=== PATIENT | female | born 1990 | race Caucasian/White ===

== ENCOUNTER 2019-12-14 14:51 | Outpatient (CLI) | payer OTHER, MEDICAID, SELFPAY ==
--- NOTE | 2019-12-14 15:00 | US_ITS ---
WS: [id number] EARLY OBSTETRICAL ULTRASOUND (<14 WEEKS). HISTORY: ENCOUNTER FOR SCREENING FOR UNCERTION DATES COMPARISON: None available. Single intrauterine gestational sac is identified. Cardiac activity at 171 BPM. [place]-rump length pardeep sures 2.6 cm which corresponds to a gestation of 9w2d. Normal-appearing yolk sac and amnion demonstra jason. No subchorionic hemorrhage. No free fluid. Normal size ovaries with no mass. US/US OB <= 14 weeks fetus [id number] IMPRESSION: 1. Single intrauterine gestation of 9 weeks 2 days and EDC of 07/16/2020. 2. No complications are apparent.
== END 2019-12-14 14:52 | disposition home or self-care (01) ==
LOC: RAD 15:00
PROVIDERS: Family Provider Family Medicine; PCP Obstetrics & Gynecology; Visit Provider Family Medicine
DX: Z36.87 Encounter for antenatal screening for uncertain dates (principal)
CPT/HCPCS: 76801

== ENCOUNTER 2020-03-01 14:06 | Outpatient (CLI) | payer OTHER, MEDICAID, SELFPAY ==
--- NOTE | 2020-03-01 14:10 | US_ITS ---
WS: [id number] OBSTETRICAL ULTRASOUND COMPLETE HISTORY: SUPERVISION HIGH RISK SECOND TRIMESTER COMPARISON: 12/14/2019 Single intrauterine gestation in Cephalic presentation. Cervix is Closed and normal length. Cervical length is 3.8 cm. Normal amount of amniotic fluid surrounds the fetus. Placenta: Anterior, no previa or abruption Placenta grade 1 Heart: 144 BPM. Four chambers are identified. Anatomy: Intracranial structures and spine are normal. kidneys, stomach and urinary bladd er are unremarkable. Abdominal wall, three-vessel cord and cord insertion site are normal. 4 extremities are present. profile: Unremarkable. Gender: Male. measurements: BPD = 4.6 cm = 20w0d HC = 18.0 cm = 20w3d AC = 15.6 cm = 20w5d FL = 3.2 cm = 20w0d EFW: 350 g., Measurements are internally concordant. Appropriate growth since the first trimester ultrasound. AGA by ultrasound: 20w2d SUE by ultrasound: 07/17/2020 US/US OB >= 14 weeks fetus [id number] IMPRESSION: 1. Single intrauterine gestation of 20w2d with an SUE of 07/17/2020. Appropria te growth since the first trimester ultrasound. 2. Unremarkable screening survey of anatomy.
== END 2020-03-01 14:07 | disposition home or self-care (01) ==
LOC: RAD 14:09
PROVIDERS: PCP Family Medicine; Visit Provider Family Medicine
DX: O09.92 Supervision of high risk pregnancy, unspecified, second trimester (principal); Z3A.20 20 weeks gestation of pregnancy
CPT/HCPCS: 76805

== ENCOUNTER 2020-04-18 08:20 | Outpatient (CLI) | payer MEDICAID, SELFPAY ==
[2020-04-18] VITALS (11 sets, daily range): BP systolic 0–105; BP diastolic 0–68; PULSE 75–93; RESP 16; TEMP 36.7; BMI 24.1
[2020-04-18] MEDS: betamethasone susp 6 mg/mL 5 mL 12 MG IM (10:52)
== END 2020-04-18 11:50 | disposition home or self-care (01) ==
LOC: OPOB 08:26 → OBGYN 11:38
PROVIDERS: PCP Family Medicine; Visit Provider Family Medicine
DX: O26.899 Other specified pregnancy related conditions, unspecified trimester (principal); Z3A.00 Weeks of gestation of pregnancy not specified; Z91.81 History of falling
CPT/HCPCS: 36415; 59025; 85460; 96372; 99211; J0702

== ENCOUNTER 2020-04-18 11:54 | Emergency (ER) | payer MEDICAID, SELFPAY ==
[2020-04-18 12:05] VITALS: BP 120/72; PULSE 81; RESP 17; TEMP 37.2; O2SAT 96; BMI 23.8
--- NOTE | 2020-04-18 12:12 | XR_ITS ---
WS: [id number] Right foot, 3 views, 04/18/2020 Clinical Data: fall, deformity, shield abd Comparison: None. Findings: No fractures or dislocations are seen. No bone destruction or erosion is noted. The joint spaces and soft tissues are normal. XR/XR foot RT min 3V* [id number] Impression: Negative right foot.
--- NOTE | 2020-04-18 12:12 | XR_ITS ---
WS: [id number] Left foot, 3 views, 04/18/2020 Clinical Data: fall, deformity - shield abd Comparison: None. Findings: No fractures or dislocations are seen. No bone destruction or erosion is noted. The joint spaces and soft tissues are normal. XR/XR foot LT min 3V* [id number] Impression: Negative left foot.
--- NOTE | 2020-04-18 12:13 | W.ED.FALL ---
HPI - Fall General: Chief Complaint: Extremity Injury, Lower Stated Complaint: FALL Time Seen by Provider: 04/18/20 12:08 History of Present Illness: HPI Narrative: This patient is a 29-year-old female who presents today after falling off of her porch. She is 27 weeks . Prior to coming to the ED she went to L&D and was monitored for 4 to 5 hours. She had blood work which they told her was normal. She was cleared from an OB perspective and brought to the ER. Her complaint here is ankle pain and foot pain bilaterally. She is not sure how she injured her feet but she noted hearing pops and cracks as she fell. She thinks maybe she twisted them as she fell off the edge of the porch. She is not sure why she fell. She said she was just standing on the porch and must have misjudged where the edge was. She landed on her abdomen. The incident occurred about 630 this morning. MD complaint: fall Onset (ago): hour(s) (6) Fall witnessed: no Place fall occurred: home Loss of consciousness: None Associated symptoms-after fall: Denies abdominal pain, chest pain, headache(s) or neck pain Review of Systems General: Reports: 10 or more systems reviewed and unremarkable except in HPI and below Const: Denies: fever(s), chills, fatigue or malaise Eyes: Denies: change in vision ENMT: Denies: odynophagia Card: Denies: chest pain or swelling of feet/ankles Resp: Denies: dyspnea, productive cough or non-productive cough GI: Denies: abdominal pain, nausea or vomiting : Denies: flank pain or difficulty voiding Musc: Reports: joint pain and joint swelling; Denies: neck pain or back pain Skin/Breast: Denies: rash Neuro: Denies: headache(s), numbness in extremities or weakness in extremities Rafael/Lymph: Denies: easy bruising or easy bleeding Physical Exam Const: COMMON NORMALS: no acute distress, patient oriented x3, no limitations and alert GENERAL APPEARANCE: cooperative and comfortable HENMT: HEAD & SCALP: normal to inspection FACE & SINUS: normal facial exam Eye: GENERAL EYE: appearance normal, both eyes and all related structures Neck/C-Spine: COMMON NORMALS: supple, no meningeal signs and no JVD Chest: COMMONS NORMALS: normal inspection of the chest Resp: COMMON NORMALS: normal respiratory effort, No use of accessory muscles and clear to auscultation bilaterally AUSCULTATION: clear to auscultation bilaterally Cardio: COMMON NORMALS: no JVD, regular rate, regular rhythm and No murmurs present (Cardio) RATE: regular rate RHYTHM: regular rhythm GI: COMMON NORMALS: Normal to inspection, nondistended, normoactive bowel sounds present, Soft to palpation and non-tender INSPECTION: Yes normal to inspection AUSCULTATION: Yes normoactive bowel sounds PALPATION: Yes Soft to palpation : BIMANUAL EXAM - VAGINA & UTERUS: Yes other (Gravid uterus, nontender) Back/Pelvis: COMMON NORMALS: thoracic and lumbar spine normal to inspection Extremity: COMMON NORMALS: normal to inspection RIGHT LOWER EXTREMITY: Yes foot & digits (Tenderness across the midfoot. Some swelling but no obvious deformity. Normal sensation. Difficulty moving the toes due to pain.) LEFT LOWER EXTREMITY: Yes foot & digits (Pain across the midfoot. Bruising and swelling on the lateral and medial dorsal surface of the foot. Deformity. Normal sensation and toe movement) Neuro: COMMON NORMALS: patient oriented x3, moves all extremities, no focal motor deficits and no sensory deficits noted SENSORIUM/ORIENTATION: Yes alert MENINGEAL SIGNS: Yes no meningeal signs Psych: COMMON NORMALS: mental status grossly normal, cooperative and normal affect Skin: COMMON NORMALS: no rashes or lesions noted and turgor normal GENERAL SKIN EXAM: no rashes or lesions noted and turgor normal Course ED course: This patient was very pleasant and patient while in the ED. The official reads for the x-rays took quite some time and were fortunately negative. Due to her persistent pain I recommended that she not ambulate if she can avoid it. She said a family member has a wheelchair that she plans to use at home. I have given her follow-up with Dr. Valdes. We discussed the possibility of ligamentous injuries. She understands that as long as it is painful to ambulate she should attempt to not do so. No apparent issues with the . She has follow-up with her OB doctor actually tomorrow. She understands to only use Tylenol for pain. Vital Signs: Vital signs: Vital Signs Temperature 98.9 F 04/18/20 12:05 Pulse Rate 68 04/18/20 16:23 Respiratory Rate 17 04/18/20 16:23 Blood Pressure 124/73 04/18/20 16:23 Pulse Oximetry 99 04/18/20 16:23 Discharge Plan Discharge Patient Disposition: Home, Self-Care Clinical Impression: Foot sprain Qualifiers: Encounter type: initial encounter Laterality: right Qualified Code(s): S93.601A - Unspecified sprain of right foot, initial encounter Sprain of foot, left Qualifiers: Encounter type: initial encounter Qualified Code(s): S93.602A - Unspecified sprain of left foot, initial encounter Qualifiers: Weeks of gestation: 27 weeks Qualified Code(s): Z3A.27 - 27 weeks gestation of Condition: Stable Prescriptions: No Action Zoloft 50 mg Tablet 50 mg PO DAILY RF: 0 28 mg iron- 800 mcg Tablet 1 tab PO DAILY RF: 0 [place] (PF) 275 mg/1.1 mL Auto-Injector 275 mg SUBCUT Q7D RF: 0 Discharge Orders: Discharge Order (Routine); Ordered 04/18/20 Ordered By: Marion Hebert Referrals: Drew Valdes DPM [Physician] - 4-7 days Fabiana Doe MD [Primary Care Provider] - Discharge Diet: Advance as tolerated Discharge Activity: Limit activity as instructed Patient Instructions: Foot Sprain (ED) Activity Restrictions/Additional Instructions: Limit weightbearing as long as you have pain in your feet. Follow-up with Dr. Valdes for further evaluation to make sure there are no serious ligament injuries. Keep feet elevated and apply ice for 20 minutes every couple of hours for the first 48 hours. Use Tylenol for pain. Discharge Date/Time: 04/18/20 16:28 Coding Level of Care Code ED Project Scientist for Chg Fwd Exam Comprehensive
--- NOTE | 2020-04-18 12:16 | XR_ITS ---
WS: [id number] Left ankle, 3 views, 04/18/2020 Clinical Data: fall, pain, shield abd Comparison: None. Findings: No fractures or dislocations are seen. The ankle mortise is normal. The talus and calcaneus are unrem arkable. No soft tissue swelling over the medial or lateral malleolus is seen. XR/XR ankle LT min 3V* [id number] Impression: Negative left ankle.
--- NOTE | 2020-04-18 12:16 | XR_ITS ---
WS: [id number] Right ankle, 3 views, 04/18/2020 Clinical Data: fall, pain, shield abd Comparison: None. Findings: No fractures or dislocations are seen. The ankle mortise is normal. The talus and calcaneus are unrem arkable. No soft tissue swelling over the medial or lateral malleolus is seen. XR/XR ankle RT min 3V* [id number] Impression: Negative right ankle.
[2020-04-18] MEDS: acetaminophen 500 mg Tablet 1000 MG PO (12:24)
[2020-04-18 16:23] VITALS: BP 124/73; PULSE 68; RESP 17; O2SAT 99
--- NOTE | 2020-04-19 09:56 | DCPLANNER ---
biodiesel engineering manager had message to schedule a follow up appointment for patient with ortho. biodiesel engineering manager called the ortho clinic, spoke with Fabiana, gave clinic patients information. biodiesel engineering manager was told that patients information would be printed and reviewed. Clinic will call patient with appointment information.
--- NOTE | 2020-04-20 13:48 | DCPLANNER ---
Patient has a follow up appointment scheduled for , April 21, [address] at 9:[address] Valdes. Clinic will call patient with appointment information.
--- NOTE | 2020-04-22 14:11 | DCPLANNER ---
Patient did attend appointment scheduled for 04.21.20 with ortho.
== END 2020-04-18 16:28 | disposition home or self-care (01) ==
PROVIDERS: Emergency Provider Emergency Medicine; PCP Family Medicine
DX: O9A.212 Injury, poisoning and certain other consequences of external causes complicating pregnancy, second trimester (principal); S93.601A Unspecified sprain of right foot, initial encounter; Z3A.27 27 weeks gestation of pregnancy; W17.89XA Other fall from one level to another, initial encounter; S93.602A Unspecified sprain of left foot, initial encounter
CPT/HCPCS: 12345; 73610; 73630; 99281; 99283

== ENCOUNTER 2020-04-19 12:25 | Outpatient (CLI) | payer MEDICAID, SELFPAY ==
[2020-04-19 12:49] VITALS: BP 109/70; PULSE 88; RESP 17; TEMP 36.7
[2020-04-19] MEDS: betamethasone susp 6 mg/mL 5 mL 12 MG IM (12:56)
[2020-04-19 14:22] VITALS: BMI 24.7
== END 2020-04-19 13:00 | disposition home or self-care (01) ==
LOC: OPOB 12:37 → OBGYN 14:23
PROVIDERS: PCP Family Medicine; Visit Provider Obstetrics & Gynecology
DX: O26.899 Other specified pregnancy related conditions, unspecified trimester (principal); Z3A.00 Weeks of gestation of pregnancy not specified; R10.9 Unspecified abdominal pain
CPT/HCPCS: 81000; 96372; 99211; J0702

== ENCOUNTER 2020-04-20 17:38 | Outpatient (CLI) | payer MEDICAID, SELFPAY ==
[2020-04-20 18:00] VITALS: RESP 18; TEMP 36.9; BMI 24.7
[2020-04-20 18:27] VITALS: BP 0/0
[2020-04-20 18:29] VITALS: BP 106/67; PULSE 84
--- NOTE | 2020-04-20 18:42 | PC.NURSE ---
Pt. taken to Triage room via wheel chair
[2020-04-20 18:58] VITALS: BP 106/67; PULSE 84; RESP 18; TEMP 536.9; TEMP 998.4
== END 2020-04-20 18:55 | disposition home or self-care (01) ==
LOC: OPOB 17:45 → OBGYN 17:45
PROVIDERS: PCP Family Medicine; Visit Provider Obstetrics & Gynecology
DX: O36.8190 Decreased fetal movements, unspecified trimester, not applicable or unspecified (principal); Z3A.00 Weeks of gestation of pregnancy not specified
CPT/HCPCS: 99211

== ENCOUNTER → 2020-04-21 11:20 | Outpatient (BNVA) | payer MEDICAID, SELFPAY | PROVIDERS: PCP Family Medicine; Referring Provider Emergency Medicine; Visit Provider Podiatrist Foot & Ankle Surgery | DX: M79.671 Pain in right foot (principal); S92.901A Unspecified fracture of right foot, initial encounter for closed fracture; X58.XXXA Exposure to other specified factors, initial encounter | CPT/HCPCS: 73630 ==

== ENCOUNTER 2020-04-21 13:28 | Outpatient (CLI) | payer MEDICAID, SELFPAY | END 2020-04-21 13:29 | disposition home or self-care (01) | LOC: SPT 13:32 | PROVIDERS: PCP Family Medicine; Visit Provider Podiatrist Foot & Ankle Surgery | DX: Z47.89 Encounter for other orthopedic aftercare (principal); S93.321D Subluxation of tarsometatarsal joint of right foot, subsequent encounter; X58.XXXD Exposure to other specified factors, subsequent encounter | CPT/HCPCS: 97760; L4361 ==

== ENCOUNTER → 2020-04-27 11:32 | Outpatient (BNVA) | payer MEDICAID, SELFPAY | PROVIDERS: PCP Family Medicine; Visit Provider Obstetrics & Gynecology | DX: O09.899 Supervision of other high risk pregnancies, unspecified trimester (principal) | CPT/HCPCS: 81000; 82950; 85027 ==

== ENCOUNTER → 2020-05-05 13:52 | Outpatient (BNVA) | payer MEDICAID, SELFPAY | PROVIDERS: PCP Family Medicine; Visit Provider Obstetrics & Gynecology | DX: S92.901A Unspecified fracture of right foot, initial encounter for closed fracture (principal); R73.09 Other abnormal glucose | CPT/HCPCS: 73630; 82951; 82952 ==

== ENCOUNTER → 2020-05-09 07:58 | Outpatient (BNVA) | payer MEDICAID, SELFPAY | PROVIDERS: PCP Family Medicine; Visit Provider Obstetrics & Gynecology | DX: O09.899 Supervision of other high risk pregnancies, unspecified trimester (principal); F32.9 Major depressive disorder, single episode, unspecified; O99.343 Other mental disorders complicating pregnancy, third trimester; Z3A.30 30 weeks gestation of pregnancy | CPT/HCPCS: 81000 ==

== ENCOUNTER → 2020-05-24 10:04 | Outpatient (BNVA) | payer MEDICAID, SELFPAY | PROVIDERS: PCP Family Medicine; Visit Provider Obstetrics & Gynecology | DX: Z34.90 Encounter for supervision of normal pregnancy, unspecified, unspecified trimester (principal) | CPT/HCPCS: 81000 ==

== ENCOUNTER → 2020-06-07 11:48 | Outpatient (BNVA) | payer MEDICAID, SELFPAY | PROVIDERS: PCP Family Medicine; Visit Provider Nurse Practitioner Women's Health | DX: Z34.90 Encounter for supervision of normal pregnancy, unspecified, unspecified trimester (principal) | CPT/HCPCS: 81000 ==

== ENCOUNTER → 2020-06-21 09:58 | Outpatient (BNVA) | payer MEDICAID, SELFPAY | PROVIDERS: PCP Family Medicine; Visit Provider Obstetrics & Gynecology | DX: O09.899 Supervision of other high risk pregnancies, unspecified trimester (principal); Z3A.00 Weeks of gestation of pregnancy not specified | CPT/HCPCS: 81000; 87081 ==

== ENCOUNTER → 2020-06-28 11:55 | Outpatient (BNVA) | payer MEDICAID, SELFPAY | PROVIDERS: PCP Family Medicine; Visit Provider Obstetrics & Gynecology | DX: Z34.90 Encounter for supervision of normal pregnancy, unspecified, unspecified trimester (principal) | CPT/HCPCS: 81000 ==

== ENCOUNTER 2020-07-03 07:02 | Inpatient (IN) | payer MEDICAID, SELFPAY ==
[2020-07-03] VITALS (72 sets, daily range): BP systolic 0–164; BP diastolic 0–97; PULSE 75–110; RESP 17–18; TEMP 36.7–36.9; O2SAT 96; BMI 27.4
[2020-07-03 08:07] LABS: Basophils % 0.3 %; Eosinophils # 0.1 10^3/uL (0.0-0.8); Eosinophils % 0.8 %; Hemoglobin 12.9 g/dL (11.5-15.3); Lymphocytes # 2.9 10^3/uL (0.8-4.8); Lymphocytes % 21.2 %; Mean Corpuscular HGB Conc 33.1 g/dL (30.0-36.0); Mean Corpuscular Hemoglobin 31.1 pg (28.0-34.0); Mean Platelet Volume 12.3 fL (7.4-10.4); Monocytes # 0.7 10^3/uL (0.2-0.9); Monocytes % 4.8 %; Neutrophils # 9.77 10^3/uL (1.8-7.7); Neutrophils % 71.5 %; Nucleated Red Blood Cells % 0 %; Platelet Count 176 10^3/cmm (130-400); Red Blood Count 4.15 10^6/uL (4.1-5.3); Red Cell Distribution Width 13.9 % (12.1-15.1); White Blood Count 13.7 10^3/uL (4.0-10.0)
[2020-07-03] MEDS: acetaminophen 325 mg Tablet 650 MG PO (09:12)
[2020-07-03] MEDS: fentaNYL 50 mcg/mL INJ 2mL IV ×2 (15:42→16:43)
[2020-07-03] MEDS: dextrose 5%-lactated ringers 1,000 ML 125 ML IV (15:43)
[2020-07-03] MEDS: oxytocin 30 UNIT/500 ML BAG IV (16:47)
--- NOTE | 2020-07-03 18:45 | P.PCNOB_ITS ---
Delivery Note: Date of delivery: July 03, 2020 Pre-delivery diagnoses: 1. at 38-1/7 weeks gestation. 2. Mental disorder (depression) complicating in third trimester Post-delivery diagnoses: 1. Term (38-1/7 weeks), delivered. 2. Mental disorder (depression) complicating , delivered Procedure: Spontaneous vaginal delivery Op report anesthesia: None Delivering Physician: Marcos Mullen MD Estimated blood loss (mL): 100 Pre-Delivery Course: Patient is a 29-year-old white female 4, para 1-2-0-3 with an LMP of 09/14/2019 and an EDC of 07/16/2020 based on 9-week ultrasound, which placed her at 38-1/7 weeks gestation at admission. She presented to labor and delivery at 04:30 on 07/03/2020 with complaint of contractions. She was having contractions every 1 to 4 minutes and was 50% effaced and 3 to 4 cm dilated. Contractions had started at approximately 23:00 on 07/02. She was monitored for the next couple of hours and continued to contract. She progressed to 4 cm dilation and was then admitted to the hospital. She continued to contract through the morning but made minimal change. At 13:45, artificial rupture membranes was performed with clear fluid present. She was 4 to 5 cm dilated and no more than 50% effaced. She continued to contract through the afternoon but had made slow change to 7 cm dilation. As a result, Pitocin was started at 16:46 for augmentation. She progressed to complete dilation by 18:18. Baby was reassuring during the labor course. She declined epidural. Delivery: Patient started pushing at 18:21 and delivered at 18:24 as a spontaneous vaginal delivery of an occiput anterior male over an intact perineum under no anesthesia. Following delivery of the 's head, no nuchal cords were noted. The shoulders were delivering square on and were impacting the pubic rami bilaterally. I initially attempted a clockwise rotation of the shoulders but was unsuccessful. A counterclockwise rotation of the shoulders was then performed with the delivery of the left shoulder anteriorly. During this time, suprapubic pressure had also been applied by the nurses. The rest of the baby delivered atraumatically. Infant was placed on the mother's abdomen where it was left in the care of the waiting nurses. Cord was clamped and then cut by the reported father of the baby. Baby was taken to the warmer where it started spontaneously crying. Cord blood was obtained. Pitocin bolus was started. Placenta delivered intact by simple expression at 18:35. The cervix and vagina were palpated and noted to be intact. The uterus was noted to be sunita well. The labia were inspected and noted to be intact except for superficial abrasions. FINDINGS 1. Viable male weighing 6 lbs 12 oz (3050 g) with a length of 20-1/4 inches and Apgars of 7 at 1 minute and 9 at 5 minutes. 2. Three-vessel cord with no loops of nuchal cord noted. 3. Normal-appearing placenta with a central cord insertion. Post-Delivery Status: Mother and infant were left to recover in satisfactory condition. A&P Assessment and plan (1) Term delivered: Status: Acute (2) Mental disorder in , delivered: Status: Acute Coding Level of Care Code Acute Necktie Centralizing Machine Operator for [facility] Fwd Diagnoses Term delivered O80 Mental disorder in , delivered O99.344
[2020-07-04] VITALS (8 sets, daily range): BP systolic 95–126; BP diastolic 57–80; PULSE 71–90; RESP 16–18; TEMP 36.6–36.8; O2SAT 95–98
[2020-07-04 07:21] LABS: Hematocrit 36.9 % (37.0-47.0); Mean Corpuscular HGB Conc 32.5 g/dL (30.0-36.0); Mean Corpuscular Hemoglobin 30.6 pg (28.0-34.0); Mean Corpuscular Volume 94.1 fL (81-99); Mean Platelet Volume 11.3 fL (7.4-10.4); Platelet Count 166 10^3/cmm (130-400); Red Blood Count 3.92 10^6/uL (4.1-5.3); Red Cell Distribution Width 13.9 % (12.1-15.1); White Blood Count 15.6 10^3/uL (4.0-10.0)
[2020-07-04] MEDS: prenatal vitamin Capsule 1 CAP PO (08:33)
[2020-07-04] MEDS: docusate sodium 100 mg Capsule PO (08:33)
[2020-07-04] MEDS: sertraline 50 mg Tablet 100 MG PO (08:33)
[2020-07-04 17:38] LABS: Coronavirus Lab Test PTC Negative
--- NOTE | 2020-07-04 18:16 | P.DS_ITS ---
Discharge Providers SHIRT LINE OPERATOR Date of Admission: 07/03/20 07:02 Date of Discharge: 07/04/20 Attending Provider at Admission: Marcos Mullen MD Attending Provider at Discharge: Marcos Mullen MD Primary SHIRT LINE OPERATOR: Nadeen Ridley MD Primary Care Provider: Fabiana Doe MD Diagnoses at Discharge Discharge Diagnosis (1) Term delivered: Status: Acute (2) Mental disorder in , delivered: Status: Acute Reason for Visit Reason for Visit: Contractions Hospital Course Hospital Course: Patient is a 29-year-old white female 4, now para 2-2-0-4 with an LMP of 09/14/2019 and an EDC of 07/16/2020 based on a 9-week ultrasound, which placed her at 38-1/7 weeks gestation at admission. She presented to L&D on 07/03/2020 at 04:30 with complaint of contractions. She was sunita every 1 to 4 minutes and was 3 to 4 cm dilated and 50% effaced. She reported that contractions had started at approximately 23:00 on 07/02. She was admitted to the hospital and made slow cervical change through the day. Artificial rupture membranes was performed at 13:45 with clear fluid present. She continued to progress slowly following this and Pitocin augmentation was eventually started at 16:46. She progressed to complete dilation by 18:18. She started pushing at 18:21 and delivered at 18:24 as a spontaneous vaginal delivery of an occiput anterior male infant over an intact perineum under no anesthesia. As the baby was delivering the shoulders were presenting square on and was impacting against the pubic rami bilaterally. Suprapubic pressure and rotation of the shoulders was performed which facilitated delivery of the shoulders. The rest the baby delivered atraumatically. The baby weighed 6 lbs 12 oz (3050 g) with a length of 20-1/4 inches and Apgars of 7 at 1 minute and 9 at 5 minutes. Patient had superficial labial abrasions and required no repair. DAY 1 Patient was without complaints. She reports tolerating a regular diet without nausea or vomiting. She reports pain has been well controlled. She denied lightheadedness or dizziness with ambulation. She denied shortness of breath or chest pains. She denied problems with urination. She states her bleeding has slowed. She is breast-feeding. She would like to be discharged home this evening. Physical exam: See below. Plan Patient is being discharged to home. Discharge instructions were discussed with the patient. Patient is requesting Depo-Provera prior to discharge for control. She was instructed to continue the vitamins and Zoloft at home after discharge. She is to follow-up in the office in approximately 6 weeks for exam. Information Peripartum Data: Infant Delivery Method: Vaginal Physical Exam Const: COMMON NORMALS: no acute distress, average body habitus, alert and well nourished GENERAL APPEARANCE: well developed ORIENTATION/CONSCIOUSNESS: Yes oriented to person, Yes oriented to place and Yes oriented to time GI: COMMON NORMALS: Soft to palpation, non-tender, No hepatosplenomegaly present and no masses (Except for nontender uterus, approximately 2 fingerbreadths below umbilicus.) AUSCULTATION: Yes normoactive bowel sounds PALPATION: Yes Soft to palpation, Yes No hepatosplenomegaly present and No Hernia present : EXTERNAL FEMALE EXAM: No Hernia present Extremity: COMMON NORMALS: no calf tenderness NARRATIVE EXTREMITY EXAM: 1+ lower extremity edema bilaterally Neuro: SENSORIUM/ORIENTATION: Yes alert, Yes oriented to person, Yes oriented to place and Yes oriented to time Psych: COMMON NORMALS: normal affect MOOD & AFFECT: Yes euthymic mood Discharge Data Data Completed and Pending: Labs from last 24 hours 07/04/20 07/03/20 07:00 07:52 WBC 15.6 H RBC 3.92 L Hgb 12.0 Hct 36.9 L MCV 94.1 MCH 30.6 MCHC 32.5 RDW 13.9 Plt Count 166 MPV 11.3 H Nasal/Oral COVID-1 9 PCR Negative Vitals: Last Vital Signs Temp 97.9 F 07/04/20 15:12 Pulse 90 07/04/20 15:12 Resp 18 07/04/20 15:12 BP 111/68 07/04/20 15:12 Pulse Ox 98 07/04/20 12:49 Discharge Plan Discharge Patient Disposition: Home Condition: Stable Prescriptions: Continued sertraline [Zoloft] 100 mg tablet 100 mg PO DAILY Qty: 30 RF: 5 PNV cmb#[id number]-ferrous fumarate-FA [] 28 mg iron- 800 mcg Tablet 1 tab PO DAILY RF: 0 Discontinued ferrous sulfate 325 mg (65 mg iron) tablet,delayed release (DR/EC) 325 mg PO DAILY RF: 0 Discharge Orders: Discharge Order (Routine); Ordered 07/04/20 Ordered By: Marcos Mullen Referrals: Iva Umanzor APN, RAVIN [Nurse Practitioner] - 08/16/20 (Your 6 week visit is schedule for Sunday August 16, 2020 at 1:15 pm.) Discharge Diet: Regular Discharge Activity: Resume usual activity Patient Instructions: , Iron Supplements (By mouth), Vitamins (By mouth), Sertraline (By mouth), Breast Care for the Breast Feeding Mother (DC), OB Discharge Report, OB Food/Drug Interaction Guide, OB Proud Parent Packet, OB Vaginal Deliveries, OB Vaginal Deliveries - [facility] Activity Restrictions/Additional Instructions: May use [id number] ibuprofen or Tylenol as needed for pain. Discharge Attestations SHIRT LINE OPERATOR Time Spent in Discharge Care*: less than 30 min Coding Level of Care Code Acute Electrical Power Engineer for g Fwd Diagnoses Term delivered O80 Mental disorder in , delivered O99.344
[2020-07-04] MEDS: medroxyprogesterone 150 mg/ml SDV 1 mL IM (19:28)
== END 2020-07-04 19:35 | disposition home or self-care (01) | DRG 807 ==
LOC: OBGYN 07-04 07:04 → OPOB 07-06 08:18
PROVIDERS: Admitting Provider Obstetrics & Gynecology; PCP Family Medicine; Visit Provider Obstetrics & Gynecology
DX: O99.344 Other mental disorders complicating childbirth (principal); Z37.0 Single live birth; Z3A.38 38 weeks gestation of pregnancy; F32.9 Major depressive disorder, single episode, unspecified
CPT/HCPCS: 12345; 59025; 59409; 85025; 85027; 87635; 96372; 96374; 96375; 99211; J1050; J3010

== ENCOUNTER → 2020-08-16 14:28 | Outpatient (BNVA) | payer MEDICAID, SELFPAY | PROVIDERS: PCP Family Medicine; Visit Provider Nurse Practitioner Women's Health | DX: Z01.419 Encounter for gynecological examination (general) (routine) without abnormal findings (principal); Z39.2 Encounter for routine postpartum follow-up | CPT/HCPCS: 88175 ==

== ENCOUNTER → 2020-10-14 11:37 | Outpatient (BNVA) | payer BC, MEDICAID, SELFPAY | PROVIDERS: PCP Nurse Practitioner Family; Visit Provider Obstetrics & Gynecology | DX: Z20.828 Contact with and (suspected) exposure to other viral communicable diseases (principal); Z30.2 Encounter for sterilization | CPT/HCPCS: 87635 ==

== ENCOUNTER 2020-10-20 05:58 | Day surgery (SDC) | payer BC, MEDICAID, SELFPAY ==
[2020-10-14 11:01] VITALS: BMI 23.8
--- NOTE | 2020-10-14 11:14 | ANES.PREANE2 ---
Pre-Anesthetic Assessment Pre-Anesthetic Assessment: Height/Weight: Height 1.57 m Weight 58.967 kg Preop Diagnosis: Multiparity desiring sterilization Proposed Procedure: Operation Date: 10/20/20 08:15 Proposed Procedures p Robby Benoit,Removal of Tubes Sterilization 39867 Z30.2(Not Applicable) - Nadeen Mae MD Familial anesthetic complications: PONV Social: Social History: No alcohol and No tobacco Exam: Pre-Anes Outpt Exam: alert, oriented x 3, clear to auscultation bilaterally and regular rate & rhythm Airway: Cervical ROM: WNL MP: 1 Dentition: Chipped (top front) Anesthetic Plan: ASA status: 1 Anesthesia: General Risk of > 500 ml blood loss (7ml/kg in children): No PFSH Anesthesia PFSH: Medical History Depression Has been symptomatic since the age of 14 and has been on many medication. Most recently has been on Zoloft 50 mg since January 2020 and symptoms are well controlled. This is being managed by her primary care provider. No pertinent past medical history Denies: hypertension, hypercholesterolemia, thyroid, heart, liver, lung, kidney problems, diabetes, DVT/PE, genital herpes. Primary care provider: CORY Lee Surgical History S/P wrist surgery 2014--right wrist fracture Family History Grandmother Diabetes maternal Stroke paternal Father Diabetes Hypertension Denies family history of Colon cancer Ovarian cancer Heart disease Hyperlipidemia Breast cancer Uterine cancer Thyroid condition Social History Smoking and tobacco status: never smoked Alcohol intake: never Data Anesthesia Cardiac Studies: No Data to Display
[2020-10-20] VITALS (10 sets, daily range): BP systolic 103–128; BP diastolic 67–79; PULSE 70–106; RESP 14–24; TEMP 36.3–37; O2SAT 96–100
[2020-10-20 06:17] LABS: OR HCG Qualitative Urine Negative (Negative)
[2020-10-20 06:26] LABS: Basophils % 0.5 %; Eosinophils # 0.2 10^3/uL (0.0-0.8); Eosinophils % 3.2 %; Hematocrit 40.6 % (37.0-47.0); Hemoglobin 12.9 g/dL (11.5-15.3); Lymphocytes # 2.2 10^3/uL (0.8-4.8); Lymphocytes % 38.6 %; Mean Corpuscular HGB Conc 31.8 g/dL (30.0-36.0); Mean Corpuscular Hemoglobin 29.5 pg (28.0-34.0); Mean Corpuscular Volume 92.9 fL (81-99); Mean Platelet Volume 11.3 fL (7.4-10.4); Monocytes # 0.3 10^3/uL (0.2-0.9); Monocytes % 5.4 %; Neutrophils % 51.9 %; Nucleated Red Blood Cells % 0 %; Platelet Count 192 10^3/cmm (130-400); Red Blood Count 4.37 10^6/uL (4.1-5.3); Red Cell Distribution Width 12.9 % (12.1-15.1); White Blood Count 5.6 10^3/uL (4.0-10.0)
[2020-10-20] MEDS: sodium chloride 0.9% 1,000 ML 30 ML IV (06:28)
[2020-10-20] MEDS: scopolamine 1.5 Patch 1 PATCH TRANSDERMA (06:47)
--- NOTE | 2020-10-20 06:55 | ANES.PAUD2 ---
Pre-Anesthetic Update Pre-Anesthetic Assessment: Date of Surgery/Procedure: 10/20/20 Preop Diagnosis: Multiparity desiring sterilization Proposed Procedure: Operation Date: 10/20/20 07:00 Proposed Procedures p Robby Ruizg,Removal of Tubes Sterilization/Salpingectomy 08802 Z30.2(Not Applicable) - Nadeen Mae MD Any changes to Pre-Anesthetic Assessment?: No Last Intake: Intake Last Liquid Date 10/19/20 Last Solid Date 10/19/20 Labs Last 48hrs: Laboratory Results - last 48 hr 10/20/20 10/20/20 06:07 06:10 WBC 5.6 RBC 4.37 Hgb 12.9 Hct 40.6 MCV 92.9 MCH 29.5 MCHC 31.8 RDW 12.9 Plt Count 192 MPV 11.3 H Neut % (Auto) 51.9 Lymph % (Auto) 38.6 [place] % (Auto) 5.4 Eos % (Auto) 3.2 Baso % (Auto) 0.5 Neut # (Auto) 2.90 Lymph # (Auto) 2.2 [place] # (Auto) 0.3 Eos # (Auto) 0.2 Baso # (Auto) 0.0 Nucleated RBC % (a uto) 0 Nucleated RBCs # 0.0 Urine HCG, Qual Negative Vitals: Temperature 98.4 F 10/20/20 06:11 Temperature Source Temporal Artery S can 10/20/20 06:11 Pulse Rate 72 10/20/20 06:11 Pulse Rhythm 10/20/20 06:11 Pulse Strength 3+ Normal 10/20/20 06:11 Respiratory Rate 18 10/20/20 06:11 Blood Pressure 121/69 10/20/20 06:11 Blood Pressure Cony n 86 10/20/20 06:11 Pulse Oximetry 98 10/20/20 06:11 Oxygen Delivery Me thod 10/20/20 06:11 Exam: Pre-Anes Outpt Exam: alert, oriented x 3, clear to auscultation bilaterally and regular rate & rhythm Cardiac Studies: No Data to Display
--- NOTE | 2020-10-20 07:07 | P.HPUD_ITS ---
Surgery/Procedure H&P Update DATE OF PROCEDURE: October 20, 2020 DATE H&P PERFORMED: 10/10/20 H&P UPDATE INFORMATION: I have reviewed H&P completed within last 30 days, I have examined patient prior to procedure, No changes to prior documentation and H&P is in [facility] EMR on date indicated PREOP DIAGNOSIS: Multiparity desiring sterilization PLANNED PROCEDURE: Operation Date: 10/20/20 07:00 Proposed Procedures p Lap Fulg,Removal of Tubes Sterilization/Salpingectomy 99084 Z30.2(Not Applicable) - Nadeen Mae MD
[2020-10-20] MEDS: silver nitrate applicator 1 EACH TOPICAL (08:28)
--- NOTE | 2020-10-20 08:33 | PM.OP ---
Operative Report Date of procedure: October 20, 2020 OPERATIVE REPORT Date of surgery: 10/20/2020 Date of dictation: 10/20/2020 Preoperative diagnosis: Depression, multiparity desiring permanent sterilization Postoperative diagnosis/findings: 6 weeks, anteverted uterus, mobile, no adnexal masses, on laparoscopy filmy adhesion of the omentum to the left lower quadrant, normal uterus, normal tubes and ovaries bilaterally with bilateral small paratubal cyst. Procedure done: Laparoscopic bilateral total salpingectomy for sterilization Specimens removed/disposition of specimens: Right and left fallopian tubes sent to pathology Surgeon: Dr. Nadeen Ridley physical therapy assistant instructor: Sandy Dubois Anesthesia: General endotracheal tube anesthesia Estimated blood loss: Less than 25 ml Intravenous fluids: 1000 ml Urine output: Less than 25 mL Medications: As per anesthesia records Complications: None, patient was extubated and taken to the recovery room in a stable condition PROCEDURE: After consents were signed patient was taken to the operating room where she was placed under general anesthesia without any difficulty. She was placed supine on the table in the lithotomy position. Exam under anesthesia revealed findings noted above. She was then prepped and draped in usual sterile fashion. Weighted speculum and anterior wall retractors were placed in the vagina, cervix visualized and grasped with a tenaculum. ZUMI uterine manipulator was placed into the uterus without any difficulty. Catheter was placed, instruments were removed from the vagina and the legs were lowered. Attention was turned towards the abdomen where local anesthetic was injected in to her umbilicus. A 10 mm skin incision was made and a 10 mm Gonzalez port was placed through the umbilicus using an open technique--- fascia was identified and tented up with [place] clamps and directly incised using curved Mayos. Peritoneum was then bluntly entered digitally and palpation revealed no adhesions around site of entry. Gonzalez trocar was then attached to the fascia and inflated. Once intra-abdominal entry was confirmed gas was turned on and intra-abdominal opening pressure was 2. The abdomen is insufflated to the pressure was 14. Survey of the abdomen revealed normal anatomy-noted above. Filmy adhesions were noted in the left lower quadrant A 5 mm trocar was placed into the right lower quadrant under direct visualization after injecting local anesthetic. The Vuoyant device was used to take down adhesions in the left lower quadrant after which a 5 mm trocar was placed in the left lower quadrant under direct visualization without any difficulty. The Voyant device was used to clamp, cauterize and then cut the mesosalpinx under the fallopian tube starting at the fimbriated end and moving towards the uterus. This was done in a sequential fashion in such a way that the entire fallopian tube was from the sidewall and the uterus. The small cornual stump was cauterized as well. This was done first on the right side and then the left side without any difficulty. The right and left fallopian tubes were taken out without any difficulty. No bleeding was noted at sites of surgery. Trochars were removed under direct visualization. All instruments removed from the abdomen and the abdomen was desufflated. The fascia on the umbilical port was closed with 0 Vicryl in a continuous fashion and good reapproximation was obtained-care was taken to tent up the fascia throughout the closure. The skin incisions was closed with 4-0 Monocryl in a subcuticular fashion good reapproximation and hemostasis was noted. The incisions were dressed with Steri-Strips Telfa and Tegaderm. The ZUMI and Perkins catheter were removed and good hemostasis was noted. The patient was extubated without any difficulty and taken to the recovery room in a stable condition. FOLLOW UP: Follow-up in 2 weeks and 6 weeks with surgeon MEDICATION ON DISCHARGE: Colace 100 mg by mouth every 12 hours when necessary constipation, 30 tablets, no refills Ibuprofen 800 mg by mouth every 8 hours when necessary pain, 60 tablets, no refills. [place] 5/325 mg 1 tablet by mouth every 6 hours when necessary pain,25 tablets, no refills Continue other home medication DISPOSITION: Home in a stable condition Pre-op Diagnosis: Multiparity desiring sterilization
[2020-10-20] MEDS: fentaNYL 50 mcg/mL INJ 2mL IVP (08:49)
--- NOTE | 2020-10-20 08:57 | SUR.PHASEI ---
PT TO PACU RESTLESS ON AWAKENING, GOOD RESP WARM BLANKETS X 3 TO PT PT SHIVERING UNCONTROLLABLE, PT HAS HX OF PONV, WILL NOT GIVE DEMEROL . PT REPOSITIONED SELF TO RT SIDE, THEN C/O OF ABD PAIN SEE FENTANYL GIVEN EARLIER
--- NOTE | 2020-10-20 09:03 | SUR.PHASEI ---
PT SLEEPS QUIETLY WITH GOOD RESP NOTED SATS 100% ON RA , ABD SOFT DRESSING X 3 D/I
[2020-10-20] MEDS: HYDROcodone-acetaminophen 5-325 mg Tablet 1 TAB PO (09:38)
--- NOTE | 2020-10-20 10:29 | ANE.PACU2 ---
Inpatient post-anesthesia follow up: Airway intact: Yes Vital signs: Temperature 98.6 F Pulse Rate 74 Respiratory Rate 18 Blood Pressure 103/78 Pulse Oximetry 98 Oxygen Delivery Me thod Room Air Oxygen Flow Rate 8 Fraction of Inspir ed Oxygen Hydration adequate: Yes Nausea and vomiting: No Pain level: 1 Mental status: Baseline
== END 2020-10-20 10:13 | disposition home or self-care (01) ==
PROVIDERS: PCP Nurse Practitioner Family; Visit Provider Obstetrics & Gynecology
PROC: (CPT 58661; principal; 2020-10-20 07:00)
DX: Z30.2 Encounter for sterilization (principal); F32.9 Major depressive disorder, single episode, unspecified
CPT/HCPCS: 58661; 12345; 36415; 81025; 84703; 85025; 86850; 86900; 88300; 88302; J0131; J1100; J1200; J2405; J2550; J2704; J3010; J3490; J7030

== ENCOUNTER → 2022-05-17 10:51 | Outpatient (BNVA) | payer BC, MEDICAID, SELFPAY | PROVIDERS: Visit Provider Obstetrics & Gynecology | DX: N92.0 Excessive and frequent menstruation with regular cycle (principal) | CPT/HCPCS: 83036; 84443; 85025 ==

== ENCOUNTER → 2022-05-22 08:40 | Outpatient (BNVA) | payer BC, MEDICAID, SELFPAY | PROVIDERS: Visit Provider Obstetrics & Gynecology | DX: N93.9 Abnormal uterine and vaginal bleeding, unspecified (principal); N83.291 Other ovarian cyst, right side; N88.8 Other specified noninflammatory disorders of cervix uteri | CPT/HCPCS: 76830 ==

== ENCOUNTER 2022-06-19 08:09 | Day surgery (SDC) | payer BC, MEDICAID, SELFPAY ==
[2022-06-18 10:27] VITALS: BMI 23.8
[2022-06-19] VITALS (8 sets, daily range): BP systolic 106–124; BP diastolic 75–88; PULSE 65–95; RESP 16–20; TEMP 36.1; O2SAT 95–100
[2022-06-19] MEDS: sodium chloride 0.9% 1,000 ML 30 ML IV (08:51)
[2022-06-19] MEDS: scopolamine 1.5 Patch 1 PATCH TRANSDERMA (08:51)
--- NOTE | 2022-06-19 09:05 | ANES.PREANE2 ---
Pre-Anesthetic Assessment Height/Weight: Height 1.57 m Weight 58.967 kg Temp Pulse Resp BP Pulse Ox O2 Del Method 97.0 F L 73 18 120/83 100 06/19/22 08:43 06/19/22 08:43 06/19/22 08:43 06/19/22 08:43 06/19/22 08:43 06/19/22 08:44 Preop Diagnosis: AUB Operation Date: 06/19/22 09:50 Proposed Procedures p Hysteroscopy, dilation and curettage with Myosure 83071, 73297, 49380,N93.9(Not Applicable) - Halie Moore MD s Dilation And Curettage (D&C)(Not Applicable) - Halie Moore MD Familial anesthetic complications: None Was Beta Rose taken within 24 hours: N/A Was Clonidine taken within 24 hours: N/A Last intake: Intake Last Liquid Date 06/18/22 Last Liquid Time 18:00 Last Solid Date 06/18/22 Last Solid Time 18:00 Social No alcohol and No tobacco Exam alert, oriented x 3, clear to auscultation bilaterally and regular rate & rhythm Airway Submandibular: within normal limits Cervical ROM: within normal limits Mallampati: Class I Dentition: chipped (Left upper central incisor ) History/ROS No significant complaints Pulmonary None reported CV/HEM None reported METS > 4 AUB Hepatic None reported GI None reported Metabolic None reported Musc/skel None reported Neuropsych Depression Anesthetic Plan ASA status: 2 Anesthesia: Anesthesia Evaluation and General Other: We discussed risk and benefits of general anesthesia including PONV, sore throat (sometimes severe), corneal abrasion, positioning and peripheral nerve injuries, life threatening allergic reaction, post operative ICU admission requiring prolonged intubation, stroke, heart attack, , and rare incidences of recall. Patient consents to proceed with general anesthesia. Risk of > 500 ml blood loss (7ml/kg in children): No Medications/Allergies Home Medications Medication Instructions Recorded Confirmed Last Taken Type ibuprofen 800 mg tablet 400 mg PO Q8H PRN pain 11/01/20 06/19/22 06/18/22 History acetaminophen 325 mg tablet 650 mg PO QID PRN Pain 06/18/22 06/18/22 Unknown History (Tylenol) Allergies Allergy/AdvReac Type Severity Reaction Status Date / Time No Known Allergies Allergy Verified 06/18/22 10:25 Current Medications Generic Name Dose Route Start Last Admin Trade Name [place] PRN Reason Stop Dose Admin Sodium Chloride 1,000 mls @ 30 mls/hr 06/19/22 08:30 06/19/22 08:51 Sodium Chloride 0.9% IV 06/20/22 08:29 30 mls/hr .Q24H EILEEN Administration PFSH Anesthesia Medical History Depression Has been symptomatic since the age of 14 and has been on many medication. Most recently has been on Zoloft 50 mg since January 2020 and symptoms are well controlled. This is being managed by her primary care provider. No pertinent past medical history Denies: hypertension, hypercholesterolemia, thyroid, heart, liver, lung, kidney problems, diabetes, DVT/PE, genital herpes. Primary care provider: CORY Lee Surgical History S/P wrist surgery 2014--right wrist fracture Status post tubal ligation 10/20/2020----laparoscopic bilateral total salpingectomy for sterilization performed by Dr. Ridley [place] [facility] [place]. Pathology showed bilateral fallopian tubes with minimal histology Family History Grandmother Diabetes maternal Stroke paternal Father Diabetes Hypertension Denies family history of Colon cancer Ovarian cancer Heart disease Hyperlipidemia Breast cancer Uterine cancer Thyroid condition Social History Smoking and tobacco status: never smoked Female Reproductive History Date of last menstrual period: 06/09/22 Data Anesthesia Cardiac Studies: No Data to Display
--- NOTE | 2022-06-19 09:24 | W.PM.OPSUD ---
Surgery/Procedure H&P Update DATE OF PROCEDURE: June 19, 2022 DATE H&P PERFORMED: 06/13/22 H&P UPDATE INFORMATION: I have reviewed H&P completed within last 30 days, I have examined patient prior to procedure and No changes to prior documentation PREOP DIAGNOSIS: AUB PLANNED PROCEDURE: Operation Date: 06/19/22 09:50 Proposed Procedures p Hysteroscopy, dilation and curettage with Myosure 63413, 66279, 51151,N93.9(Not Applicable) - Halie Moore MD s Dilation And Curettage (D&C)(Not Applicable) - Halie Moore MD Related Problem List Diagnoses (1) Abnormal uterine bleeding (AUB):
[2022-06-19] MEDS: ceFAZolin 2,000 MG in sodium chloride 0.9% (plus) 50 ML 100 MG IV (09:50)
--- NOTE | 2022-06-19 10:28 | PM.OP ---
Operative Report Date of procedure: June 19, 2022 Pre-op diagnosis: Preop Diagnosis AUB Post-op diagnosis: same Post-op diagnosis: same, uterine prolapse Post-op findings: 7 week sized uterus with third degree prolapse, excessive tissue Procedure done: hysteroscopy, dilation and curettage with myosure Specimens removed/disposition: endometrial curettage to pathology Surgeon: Halie Moore Anesthesia: General Estimated blood loss (mL): 2 IV fluids (mL): 500 Complications: none Findings: hysteroscopy deficit 500 ml Condition: stable Disposition: PACU Procedure: The patient was taken to the operating room where monitored anesthesia was administered and to be adequate. She was prepped and draped in the normal sterile fashion in the dorsal lithotomy position in Jadiel stirrups. A weighted speculum was placed into the vagina and the anterior lip of the cervix grasped with a single-tooth tenaculum. The uterus was sounded to 7 cm. The cervix was dilated to 16 [place]. The hysteroscope was advanced into the endometrial cavity. There was excessive tissue visualized. The MyoSure device was activated and the tissue was removed. Pictures were taken pre and post procedure. All instruments were removed. The patient tolerated the procedure well. Sponge lap and needle counts were correct x3. She was taken to the recovery room in stable condition.
--- NOTE | 2022-06-19 10:32 | PM.DCS ---
Discharge Providers Date of Admission: 06/19/22 Date of Discharge: June 19, 2022 Attending Provider at Discharge: Halie Moore MD Diagnoses at Discharge Discharge Diagnosis (1) Abnormal uterine bleeding (AUB): Status: Acute Reason for Visit Reason for Visit: abnormal uterine and vaginal bleeding, unspecified Hospital Course Hospital Course The patient was admitted for surgery. She did well postoperatively and was ready for discharge Discharge Data Studies Completed and Pending Pending at discharge Category Date Time Status ES surgery / GI images Routine Exams 06/19/22 09:11 Taken Pathology: Surgical [PTH] Routine Pth 06/19/22 10:30 Ordered Vitals Last Vital Signs Temp 97.0 F L 06/19/22 08:43 Pulse 73 06/19/22 08:43 Resp 18 06/19/22 08:43 BP 120/83 06/19/22 08:43 Pulse Ox 100 06/19/22 08:43 O2 Del Method 06/19/22 08:44 Discharge Plan Discharge Patient Disposition: Home Condition: Stable Prescriptions: Continued ibuprofen 800 mg tablet 400 mg PO Q8H PRN (Reason: pain) Tylenol 325 mg Tablet 650 mg PO QID PRN (Reason: Pain) Discharge Orders: Discharge Order (Routine); Ordered 06/19/22 Ordered By: Halie Moore Discharge Attestations Time Spent in Discharge Care*: less than 30 min Quality Metrics Clinical Quality Measures [ No reported AMI, CVA or VTE this stay] Coding Level of Care Code Acute Chg FW DC note Diagnoses Abnormal uterine bleeding (AUB) N93.9
[2022-06-19] MEDS: fentaNYL 50 mcg/mL INJ 2mL IVP (10:33)
[2022-06-19] MEDS: ibuprofen 800 mg tablet PO (11:17)
--- NOTE | 2022-06-19 15:44 | ANE.PACU2 ---
Inpatient post-anesthesia follow up: Airway intact: Yes Vital signs: Temperature 97.0 F Pulse Rate 73 Respiratory Rate 16 Blood Pressure 111/79 Pulse Oximetry 100 Oxygen Delivery Me thod Room Air Oxygen Flow Rate Fraction of Inspir ed Oxygen Hydration adequate: Yes Nausea and vomiting: No Pain level: 3 Mental status: Baseline
== END 2022-06-19 11:39 | disposition home or self-care (01) ==
PROVIDERS: Visit Provider Obstetrics & Gynecology
PROC: 0UDB8ZZ Extraction of Endometrium, Via Natural or Artificial Opening Endoscopic (ICD-10-PCS; CPT 58558; principal; 2022-06-19 09:40)
PROC: (CPT 58120; 2022-06-19 09:40)
DX: N81.3 Complete uterovaginal prolapse (principal)
CPT/HCPCS: 58558; 88305; J1100; J1885; J2405; J3010; J7030

== ENCOUNTER 2022-08-14 08:27 | Inpatient (IN) | payer BC, MEDICAID, SELFPAY ==
[2022-08-14] VITALS (65 sets, daily range): BP systolic 62–136; BP diastolic 32–108; PULSE 54–115; RESP 12–30; TEMP 36.3–37.2; O2SAT 93–100; BMI 23.2
[2022-08-14] MEDS: acetaminophen 1,000 MG/100 ML PIGGYBACK 400 MG IV (06:10)
[2022-08-14] MEDS: sodium chloride 0.9% 1,000 ML 30 ML IV (06:28)
[2022-08-14] MEDS: CELEcoxib 200 mg Capsule 400 MG PO (06:29)
[2022-08-14] MEDS: phenazopyridine 100 mg Tablet 200 MG PO ×2 (06:29→21:21)
[2022-08-14] MEDS: gabapentin 300 mg Capsule PO (06:29)
[2022-08-14] MEDS: scopolamine 1.5 Patch 1 PATCH TRANSDERMA (06:29)
[2022-08-14 06:31] LABS: Basophils % 0.3 %; Eosinophils # 0.1 10^3/uL (0.0-0.8); Eosinophils % 2.2 %; Hemoglobin 13.5 g/dL (11.5-15.3); Lymphocytes # 2.2 10^3/uL (0.8-4.8); Lymphocytes % 37.7 %; Mean Corpuscular HGB Conc 32.9 g/dL (30.0-36.0); Mean Corpuscular Hemoglobin 29.3 pg (28.0-34.0); Mean Corpuscular Volume 88.9 fl (81-99); Mean Platelet Volume 12.2 fL (7.4-10.4); Monocytes # 0.3 10^3/uL (0.2-0.9); Monocytes % 4.9 %; Neutrophils # 3.21 10^3/uL (1.8-7.7); Neutrophils % 54.6 %; Nucleated Red Blood Cells % 0 %; Platelet Count 179 10^3/cmm (130-400); Red Blood Count 4.61 10^6/uL (4.1-5.3); Red Cell Distribution Width 12.9 % (12.1-15.1); White Blood Count 5.9 10^3/uL (4.0-10.0)
[2022-08-14 06:51] LABS: Anion Gap 13.6 (5-19); Blood Urea Nitrogen 15 mg/dL (6-20); Carbon Dioxide 22 mmol/L (22-29); Chloride 104 mmol/L (98-107); Glomerular Filtration Rate 142.1 mL/min (90-130); Glucose 85 mg/dL (65-115); Osmolality Calculated 282 mOsm/kg (285-295); Potassium 3.6 mmol/L (3.5-5.1); Sodium 136 mmol/L (136-145)
--- NOTE | 2022-08-14 06:57 | W.PM.OPSUD ---
Surgery/Procedure H&P Update DATE OF PROCEDURE: August 14, 2022 DATE H&P PERFORMED: 08/09/22 H&P UPDATE INFORMATION: I have reviewed H&P completed within last 30 days, I have examined patient prior to procedure and Changes to prior documentation as noted here CHANGES TO PREVIOUS DOCUMENTATION: No salpingectomy today, as patient has already had a salpingectomy performed. If there is good decensus under anesthesia, I will perform a total vaginal hysterectomy. PREOP DIAGNOSIS: uterine prolapse, AUB PLANNED PROCEDURE: Operation Date: 08/14/22 07:00 Proposed Procedures p Laparoscopic assisted vaginal hysterectomy, bilateral salpingectomy 71241, Possible anterior and posterior repair 20099,N81.4,N93.9(Not Applicable) - Halie Moore MD s Salpingectomy(Bilateral) - Halie Moore MD Related Problem List Diagnoses (1) Adenomyosis: (2) Uterine prolapse: (3) Abnormal uterine bleeding (AUB):
[2022-08-14] MEDS: ceFAZolin 2,000 MG in sodium chloride 0.9% (plus) 50 ML 100 MG IV ×2 (07:00→15:57)
--- NOTE | 2022-08-14 07:34 | ANES.PREANE2 ---
Pre-Anesthetic Assessment Height/Weight: Height 1.57 m Weight 57.606 kg Temp Pulse Resp BP Pulse Ox O2 Del Method 99.0 F 83 18 124/78 98 08/14/22 06:03 08/14/22 06:03 08/14/22 06:03 08/14/22 06:03 08/14/22 06:03 08/14/22 06:05 Preop Diagnosis: uterine prolapse, AUB Operation Date: 08/14/22 07:00 Proposed Procedures p Laparoscopic assisted vaginal hysterectomy, bilateral salpingectomy 76444, Possible anterior and posterior repair 20031,N81.4,N93.9(Not Applicable) - Halie Moore MD s Salpingectomy(Bilateral) - Halie Moore MD Familial anesthetic complications: none Was Beta Rose taken within 24 hours: N/A Last intake: Intake Last Liquid Date 08/13/22 Last Liquid Time 18:00 Last Solid Date 08/13/22 Last Solid Time 18:00 Social No alcohol and No tobacco Exam alert, oriented x 3, clear to auscultation bilaterally and regular rate & rhythm Airway Submandibular: within normal limits Cervical ROM: within normal limits Mallampati: Class II Dentition: full History/ROS No significant history except as noted Anesthetic Plan ASA status: 1 Anesthesia: General Medications/Allergies Home Medications Medication Instructions Recorded Confirmed Last Taken Type ibuprofen 800 mg tablet 400 mg PO Q8H PRN pain 11/01/20 08/14/22 06/18/22 History acetaminophen 325 mg tablet 650 mg PO QID PRN Pain 06/18/22 08/14/22 08/13/22 History (Tylenol) Allergies Allergy/AdvReac Type Severity Reaction Status Date / Time No Known Allergies Allergy Verified 08/14/22 06:02 Current Medications Generic Name Dose Route Start Last Admin Trade Name Freq PRN Reason Stop Dose Admin Sodium Chloride 1,000 mls @ 30 mls/hr 08/14/22 06:00 08/14/22 06:28 Sodium Chloride 0.9% IV 08/15/22 05:59 30 mls/hr .Q24H EILEEN Administration PFSH Anesthesia Medical History Depression Has been symptomatic since the age of 14 and has been on many medication. Most recently has been on Zoloft 50 mg since January 2020 and symptoms are well controlled. This is being managed by her primary care provider. No pertinent past medical history Denies: hypertension, hypercholesterolemia, thyroid, heart, liver, lung, kidney problems, diabetes, DVT/PE, genital herpes. Primary care provider: CORY Lee Surgical History S/P wrist surgery 2014--right wrist fracture Status post tubal ligation 10/20/2020----laparoscopic bilateral total salpingectomy for sterilization performed by Dr. Ridley at [facility] [place]. Pathology showed bilateral fallopian tubes with minimal histology Family History Grandmother Diabetes maternal Stroke paternal Father Diabetes Hypertension Denies family history of Colon cancer Ovarian cancer Heart disease Hyperlipidemia Breast cancer Uterine cancer Thyroid condition Social History Smoking and tobacco status: never smoked Female Reproductive History Date of last menstrual period: 07/20/22 Data Anesthesia : 08/14/22 06:15 08/14/22 06:15 Short CBC 08/14/22 Range/Units 06:15 WBC 5.9 (4.0-10.0) 10^3/uL Hgb 13.5 (11.5-15.3) g/dL Hct 41.0 (37.0-47.0) % MCV 88.9 (81-99) fl Plt Count 179 (130-400) 10^3/cmm Neut % (Auto) 54.6 % Neut # (Auto) 3.21 (1.8-7.7) 10^3/uL BMP 08/14/22 06:15 Sodium 136 Potassium 3.6 Chloride 104 Carbon Dioxide 22 BUN 15 Creatinine 0.5 Glucose 85 Calcium 9.0 Cardiac Studies: No Data to Display
[2022-08-14] MEDS: vasopressin 20 unit/mL INJ 4 UNIT INJECTION (07:59)
--- NOTE | 2022-08-14 08:35 | P.OP_ITS ---
Operative Report Date of procedure: August 14, 2022 Pre-op diagnosis: Preop Diagnosis uterine prolapse, AUB Post-op diagnosis: same Procedure done: TVH, Cystoscopy Specimens removed/disposition: Uterus to pathology Surgeon: Halie Moore Anesthesia: General Estimated blood loss (mL): 50 IV fluids (mL): 900 Urine output (mL): 400 Complications: none Findings: grade 3 uterine prolapse. Due to previous salpingectomy and significant prolapse, the LAVH was converted to TVH Condition: stable Disposition: PACU Procedure: The patient was taken to the operating room where general anesthesia was administered and found to be adequate. She was prepped and draped in the normal sterile fashion in the dorsal lithotomy position in [facility]. A Perkins catheter was placed. A weighted speculum was placed into the vagina and the anterior and posterior lip of the cervix was grasped with a Luis tenaculum. 10 mL of dilute Pitressin was injected at the vesicovaginal junction. A circumferential incision was made at the vesicovaginal junction and the vaginal mucosa reflected cephalad. The posterior peritoneum was entered sharply with the Metzenbaum scissors and the long weighted speculum replaced. Using the Leon clamps the uterosacral ligaments were clamped cut and suture-ligated. Then sequentially the uterine arteries and cardinal ligaments were clamped cut and suture-ligated. A single-tooth tenaculum was used to deliver the uterus. The utero-ovarian ligaments were clamped cut and suture-ligated bilaterally and the specimen was removed. The bilateralovaries were visualized and found to be normal. The peritoneum was closed with a pursestring using 2-0 Vicryl. The vaginal cuff was closed with 0 Vicryl in a running locked pattern incorporating the uterosacral ligaments into the lateral aspects of the vaginal cuff. The Perkins catheter was removed and the cystoscope advanced into the bladder. T he patient was pyridium and bilateral spill was noted. There were no injuries or deficits noted in the bladder. The cystoscope was removed and the Perkins was replaced. Vaginal packing was placed for good hemostasis. She tolerated the procedure well. Sponge lap and needle counts were correct x3. She was taken to the recovery room in stable condition.
[2022-08-14] MEDS: fentaNYL 50 mcg/mL INJ 2mL IVP (09:03)
[2022-08-14] MEDS: HYDROmorphone 1 mg/mL INJ 1 mL 0.5 MG IVP ×4 (09:35→10:19)
--- NOTE | 2022-08-14 09:50 | PC.NURSE ---
1028 patient having extreme pain when transferring to OB. Immediately returned to PACU. Anesthesia notified. Dilaudid given per Anesthesia. .
[2022-08-14] MEDS: meperidine 50 mg/mL INJ 12.5 MG IVP (09:59)
--- NOTE | 2022-08-14 10:03 | PC.NURSE ---
No bleeding. Continued pain. Demerol given per [employer] OK
--- NOTE | 2022-08-14 10:06 | PC.NURSE ---
Dr. Newton at bedside. Continue with dilaudid 0.5mg up to 4 mg.
--- NOTE | 2022-08-14 10:15 | PC.NURSE ---
patient rolled to side. No bleeding noted
[2022-08-14] MEDS: dextrose 5%-lactated ringers 1,000 ML 125 ML IV ×2 (11:10→18:58)
[2022-08-14] MEDS: HYDROcodone-acetaminophen 5-325 mg Tablet PO ×2 (11:11→21:26)
[2022-08-14] MEDS: ketorolac 30 mg/mL INJ IVP ×2 (11:11→15:57)
[2022-08-14] MEDS: ondansetron 2 mg/ML SDV 2 mL 4 MG IVP ×2 (11:12→16:16)
--- NOTE | 2022-08-14 11:44 | PC.NURSE ---
Pt to floor from OR via stretcher. Pt moved self to bed without difficulty. Pt c/o pain and nausea, medications provided. Oriented to room and call light. Plan of care discussed.
[2022-08-14] MEDS: HYDROmorphone 1 mg/mL INJ 1 mL 1.5 MG IVP ×2 (12:10→15:57)
--- NOTE | 2022-08-14 15:24 | ANE.PACU2 ---
Inpatient post-anesthesia follow up: Airway intact: Yes Vital signs: Temperature 98.1 F Pulse Rate 97 Respiratory Rate 15 Blood Pressure 101/62 Pulse Oximetry 94 Oxygen Delivery Me thod Room Air Oxygen Flow Rate Fraction of Inspir ed Oxygen Hydration adequate: Yes Nausea and vomiting: No Pain level: 5 Mental status: Baseline
[2022-08-14] MEDS: sodium chloride 0.9% 500 ML 999 ML IV (16:25)
--- NOTE | 2022-08-14 17:08 | PC.NURSE ---
Pt up to chair with minimal assistance. Pt c/o feeling light headed and dizzy. Pt hypotensive. IV fluid bolus started and pt assisted back to bed. Minimal vaginal spotting noted to cornelius pad. Urine output decreased, 70mL over [address] Moore notified of findings and orders for stat CBC and call with results, and hold any further IV narcotics at this time. Discusse plan with pt and she agrees. Will continue to monitor blood pressure and urine output with IV bolus.
[2022-08-14] MEDS: sodium chloride 0.9% 500 ML IV (17:15)
[2022-08-14 17:29] LABS: Basophils % 0.2 %; Hematocrit 28.5 % (37.0-47.0); Hemoglobin 9.2 g/dL (11.5-15.3); Lymphocytes # 0.6 10^3/uL (0.8-4.8); Lymphocytes % 4.5 %; Mean Corpuscular HGB Conc 32.3 g/dL (30.0-36.0); Mean Corpuscular Hemoglobin 29.8 pg (28.0-34.0); Mean Corpuscular Volume 92.2 fl (81-99); Monocytes # 0.3 10^3/uL (0.2-0.9); Monocytes % 2.1 %; Neutrophils # 11.79 10^3/uL (1.8-7.7); Neutrophils % 92.9 %; Nucleated Red Blood Cells % 0 %; Platelet Count 150 10^3/cmm (130-400); Red Blood Count 3.09 10^6/uL (4.1-5.3); Red Cell Distribution Width 13.1 % (12.1-15.1); White Blood Count 12.7 10^3/uL (4.0-10.0)
--- NOTE | 2022-08-14 17:43 | USR_ITS ---
PROCEDURE INFORMATION: Exam: US Nonobstetric Pelvis; Complete Exam date and time: 08/14/2022 5:50 PM Age: 32 years old Clinical indication: Pelvic pain; Prior surgery; Surgery date: Post-operative (0-2 days); Surgery type: Hysterectomy; Additional info: Pelvic pain post hyst, decreased h h TECHNIQUE: Imaging protocol: Transabdominal pelvic nonobstetric ultrasound. Complete exam. Real time ultrasound with image documentation. COMPARISON: US transvaginal [id number] 05/22/2022 8:46 AM FINDINGS: Uterus: Uterus is absent. Right ovary/adnexa: Ovary not visualized. Left ovary/adnexa: Ovary not visualized Intraperitoneal space: Complex fluid collection in the pelvis measuring up to at least 11.3 x 9.6 x 6.6 cm suggestive of a large hematoma, negative for internal color blood flow. Urinary bladder: Normal. US/US pelvic limited [id number] IMPRESSION: 1. Uterus is absent. 2. Ovaries are not seen bilaterally. 3. Complex fluid collection in the pelvis measuring up to at least 11.3 x 9.6 x 6.6 cm suggestive of a large hematoma, negative for internal color blood flow.
--- NOTE | 2022-08-14 18:03 | CTR_ITS ---
PROCEDURE INFORMATION: Exam: CT Abdomen And Pelvis With Contrast Exam date and time: 08/14/2022 6:24 PM Age: 32 years old Clinical indication: Abdominal pain; Localized; Lower; Prior surgery; Surgery date: Post-operative (0-2 days); Surgery type: Hyster; Additional info: Pelvic US suggests hematoma postop hyst, decreased h h, pain TECHNIQUE: Imaging protocol: Computed tomography of the abdomen and pelvis with contrast. Radiation optimization: All CT scans at this facility use at least one of these dose optimization techniques: automated exposure control; mA and/or kV adjustment per patient size (includes targeted exams where dose is matched to clinical indication); or iterative reconstruction. Contrast material: OMNI 350; Contrast volume: 100 ml; Contrast route: INTRAVENOUS (IV); COMPARISON: US pelvic limited [id number] 08/14/2022 5:50 PM RADIATION DOSE METRICS: Total DLP (mGy-cm): 430.35 FINDINGS: Lungs: Bibasilar atelectasis. Liver: Left hepatic lobe 4.7 cm somewhat rounded focal exophytic masslike area, best seen series 4, image 25 and series 6, image 12, while findings may reflect prominent lobulation of the left hepatic lobe, an underlying mass is a concern, consider further evaluation with nonemergent hepatic ultrasound. Gallbladder and bile ducts: Normal. No calcified stones. No ductal dilation. Pancreas: Normal. No ductal dilation. Spleen: Normal. No splenomegaly. Adrenal glands: Normal. No mass. Kidneys and ureters: Normal. No hydronephrosis. Stomach and bowel: Constipation. Appendix: No evidence of appendicitis. Intraperitoneal space: Moderate to large amount of ascites throughout the abdomen and pelvis along with a trace amount of free air in the abdomen and pelvis, likely related to recent history. Vasculature: Unremarkable. No abdominal aortic aneurysm. Lymph nodes: Unremarkable. No enlarged lymph nodes. Urinary bladder: Perkins catheter in the urinary bladder. Reproductive: Unremarkable as visualized. Bones/joints: Unremarkable. No acute fracture. Soft tissues: Complex collection of material in the deep pelvis measuring approximately 12 by 5 by 9 cm as seen on recent pelvic ultrasound likely reflects a large hematoma, negative for active contrast extravasation seen to suggest bleeding. CT/CT abdomen pelvis w con* [id number] IMPRESSION: 1. Complex collection of material in the deep pelvis measuring approximately 12 by 5 by 9 cm as seen on recent pelvic ultrasound likely reflects a large hematoma, negative for active contrast extravasation seen to suggest bleeding. 2. Bibasilar atelectasis. 3. Moderate to large amount of ascites throughout the abdomen and pelvis along with a trace amount of free air in the abdomen and pelvis, likely related to recent history. 4. Perkins catheter in the urinary bladder. 5. Left hepatic lobe 4.7 cm somewhat rounded focal exophytic masslike area, best seen series 4, image 25 and series 6, image 12, while findings may reflect prominent lobulation of the left hepatic lobe, an underlying mass is a concern, consider further evaluation with nonemergent hepatic ultrasound. 6. Constipation.
--- NOTE | 2022-08-14 18:15 | PC.NURSE ---
pt to CT via bed, RN with pt
[2022-08-14] MEDS: iohexol 350 mg/mL 500 mL Btl (per mL) IV (18:35)
--- NOTE | 2022-08-14 18:40 | PC.NURSE ---
pt back to room from CT
--- NOTE | 2022-08-14 19:21 | PC.NURSE ---
vaginal packing removed by Dr Moore. small amount of blood noted on packing. cornelius back placed to monitor for vaginal bleeding.
[2022-08-14 19:45] LABS: Hematocrit 31.6 % (37.0-47.0); Hemoglobin 10.2 g/dL (11.5-15.3); Mean Corpuscular HGB Conc 32.3 g/dL (30.0-36.0); Mean Corpuscular Hemoglobin 29.7 pg (28.0-34.0); Mean Corpuscular Volume 91.9 fl (81-99); Mean Platelet Volume 12.2 fL (7.4-10.4); Platelet Count 153 10^3/cmm (130-400); Red Blood Count 3.44 10^6/uL (4.1-5.3); White Blood Count 12.6 10^3/uL (4.0-10.0)
[2022-08-14 19:52] LABS: Lactate (Lactic Acid level) 2.7 mmol/L (0.5-2.2)
[2022-08-15] VITALS (33 sets, daily range): BP systolic 91–117; BP diastolic 52–78; PULSE 64–99; RESP 15–16; TEMP 36.7–37.4; O2SAT 95–100
[2022-08-15 00:11] LABS: Hematocrit 26.4 % (37.0-47.0); Hemoglobin 8.6 g/dL (11.5-15.3); Mean Corpuscular HGB Conc 32.6 g/dL (30.0-36.0); Mean Corpuscular Hemoglobin 29.6 pg (28.0-34.0); Mean Corpuscular Volume 90.7 fl (81-99); Mean Platelet Volume 11.9 fL (7.4-10.4); Platelet Count 152 10^3/cmm (130-400); Red Blood Count 2.91 10^6/uL (4.1-5.3); White Blood Count 11.5 10^3/uL (4.0-10.0)
[2022-08-15] MEDS: simethicone 80 mg Chew PO ×2 (01:34→09:52)
[2022-08-15] MEDS: morphine 4 mg/mL SDV 1 mL 1 MG IVP ×3 (01:35→08:01)
[2022-08-15] MEDS: dextrose 5%-lactated ringers 1,000 ML 125 ML IV ×2 (03:04→11:06)
[2022-08-15] MEDS: oxyCODONE-APAP 5-325 mg Tablet PO (03:39)
[2022-08-15 05:31] LABS: Hematocrit 24.3 % (37.0-47.0); Hemoglobin 7.9 g/dL (11.5-15.3); Mean Corpuscular HGB Conc 32.5 g/dL (30.0-36.0); Mean Corpuscular Hemoglobin 29.7 pg (28.0-34.0); Mean Corpuscular Volume 91.4 fl (81-99); Platelet Count 141 10^3/cmm (130-400); Red Blood Count 2.66 10^6/uL (4.1-5.3); Red Cell Distribution Width 13.2 % (12.1-15.1); White Blood Count 10.3 10^3/uL (4.0-10.0)
[2022-08-15] MEDS: ondansetron 2 mg/ML SDV 2 mL 4 MG IVP (06:22)
[2022-08-15] MEDS: docusate sodium 100 mg Capsule PO (09:21)
[2022-08-15] MEDS: phenazopyridine 100 mg Tablet 200 MG PO ×2 (09:21→15:33)
[2022-08-15] MEDS: oxyCODONE-APAP 5-325 mg Tablet 1 TAB PO ×3 (09:21→22:44)
--- NOTE | 2022-08-15 11:54 | P.PN_ITS ---
Subjective Subjective: Called by nurse. The patient wanted to sit in the chair. She was in pain. She was given dilaudid and became light headed and nauseous. Her blood pressure dropped. It continued to be low. A CBC was ordered and it showed a significant anemia. An ultrasound showed a 12 x 5 cm clot and that wa s confirmed with a CT scan. The CT scan showed a 12 x 9 x 5 cm hematoma in the pelvis. There did not appear to be current bleeding. The vaginal packing was removed and it was normal. There wasn't excessive blood on the packing.There was a 4 cm liver mass and moderate ascites. I contacted general surgery. He stated that the liver mass was likely an adenoma. It could be followed as an outpatient. The ascites was from the blood loss and was plasma. She had serial hemagrams. Initially, the hemoglobin increased, which I feel was an error. It went from 9.2 to 7.9 this morning. She did received aggressive IV hydration when she had the hypotension. Orthostatics were performed and normal, but the patient is symptommatic. She has a hard time sitting up without being light headed. She is also very tired. Vitals/I&O/Wt Last Vital Signs Temp 98.5 F 08/15/22 11:27 Pulse 67 08/15/22 11:27 Resp 16 08/15/22 11:27 BP 100/63 08/15/22 11:27 Pulse Ox 97 08/15/22 11:27 O2 Del Method 08/15/22 06:19 08/14/22 08/15/22 08/15/22 22:59 06:59 14:59 Intake Total 2200 / 4490 1000 / 5490 1000 / 1000 Output Total 300 / 1990 575 / 2565 600 / 600 Balance 1900 / 2500 425 / 2925 400 / 400 Weight last 48 hrs Weight 126 lb 15.78 oz Weight 127 lb Physical Exam Narrative: The patient is very tired. She is having pain and nausea. Toradol and motrin have been stopped. Const: COMMON NORMALS: no acute distress, average body habitus, patient oriented x3, no limitations, healthy appearing, alert and well nourished GENERAL APPEARANCE: cooperative, comfortable, well kempt and well developed ORIENTATION/CONSCIOUSNESS: Yes awake, Yes oriented to person, Yes oriented to place and Yes oriented to time Resp: COMMON NORMALS: normal respiratory effort EFFORT & INSPECTION: Yes able to speak in complete sentences GI: COMMON NORMALS: Soft to palpation PALPATION: Yes Soft to palpation Extremity: COMMON NORMALS: no calf tenderness Neuro: COMMON NORMALS: patient oriented x3 SENSORIUM/ORIENTATION: Yes alert, Yes oriented to person, Yes oriented to place and Yes oriented to time Psych: APPEARANCE: Yes well kempt Urinary Catheter Management: Perkins Latex: Cath Placed During This Visit: yes Reason for Continuing Indwelling Catheter: Required Immobilization for Trauma or Surgery or Anesthesia Urinary Catheter Date of Insertion: 08/14/22 Urinary Catheter Time of Insertion: 07:35 Data : 08/15/22 05:24 08/14/22 06:15 Micro: Microbiology 08/14/22 07:36 Urine Culture - Preliminary Urine Catheterized A&P Assessment and plan (1) Postoperative vaginal bleeding: Large hematoma in the pelvis appears to not be bleeding. hemoglobin low, but stable. Patient is symtommatic. Will transfuse 2 units of PRBC's Repeat h/h after trasnfusion. will keep the patient another 24 hours to assure she is stable. Patient has had scant vaginal bleeding. continue to watch carefully Attestations Medical Necessity Statement*: The patient will be her for 2 midnights. Coding Level of Care Code Acute Mental Health Consultant for Tasneem Kincaid Diagnoses Postoperative vaginal bleeding
[2022-08-15] MEDS: diphenhydrAMINE 50 mg Capsule PO (15:33)
--- NOTE | 2022-08-15 15:49 | PC.NURSE ---
1535 PATIENT BACK INTO BED, I JUST GAVE HER SOME BENADRYL AND I WAS AFRAID SHE WOULD BE SLEEPY.
--- NOTE | 2022-08-15 17:50 | USR_ITS ---
PROCEDURE INFORMATION: Exam: US Nonobstetric Pelvis; Complete Exam date and time: 08/15/2022 7:05 PM Age: 32 years old Clinical indication: Abnormal findings; Mass/lesion; Periumbilic; Prior surgery; Surgery date: Post-operative (0-2 days); Patient HX: Post vaginal hysterectomy 07/14/22, 12.3 x 4.9 x 8.2cm mixed, echopenic, non-vascular probable hematoma persists; Additional info: Re=evalute possible pelvic hematoma around vaginal cuff, post vaginal hyst yesterday. TECHNIQUE: Imaging protocol: Transabdominal pelvic nonobstetric ultrasound. Complete exam. Real time ultrasound with image documentation. COMPARISON: US pelvic limited [id number] 08/14/2022 5:50 PM FINDINGS: Heterogeneous lobulated hypoechoic structure measuring 12.3 x 4.9 x 8.2 cm. No internal vascular flow seen. Neither ovary is seen on exam. No free fluid is seen within the pelvis. US/US pelvic limited [id number] IMPRESSION: Heterogeneous, hypoechoic structure measuring 12.3 x 4.9 x 8.2 cm within the pelvis, given history this likely reflects an evolving hematoma.
[2022-08-15 18:24] LABS: Basophils % 0.3 %; Eosinophils # 0.1 10^3/uL (0.0-0.8); Eosinophils % 0.7 %; Hemoglobin 11.1 g/dL (11.5-15.3); Lymphocytes # 2.6 10^3/uL (0.8-4.8); Mean Corpuscular HGB Conc 32.6 g/dL (30.0-36.0); Mean Corpuscular Hemoglobin 29.4 pg (28.0-34.0); Mean Corpuscular Volume 89.9 fl (81-99); Mean Platelet Volume 12.2 fL (7.4-10.4); Monocytes # 0.3 10^3/uL (0.2-0.9); Monocytes % 4.8 %; Neutrophils # 3.91 10^3/uL (1.8-7.7); Neutrophils % 56.8 %; Nucleated Red Blood Cells % 0 %; Platelet Count 127 10^3/cmm (130-400); Red Blood Count 3.78 10^6/uL (4.1-5.3); Red Cell Distribution Width 13.7 % (12.1-15.1); White Blood Count 6.9 10^3/uL (4.0-10.0)
[2022-08-15 22:57] LABS: Basophils % 0.4 %; Eosinophils # 0.1 10^3/uL (0.0-0.8); Hematocrit 31.6 % (37.0-47.0); Hemoglobin 10.2 g/dL (11.5-15.3); Lymphocytes # 2.8 10^3/uL (0.8-4.8); Lymphocytes % 40.8 %; Mean Corpuscular HGB Conc 32.3 g/dL (30.0-36.0); Mean Corpuscular Volume 89.8 fl (81-99); Mean Platelet Volume 12.4 fL (7.4-10.4); Monocytes # 0.3 10^3/uL (0.2-0.9); Monocytes % 4.9 %; Neutrophils # 3.64 10^3/uL (1.8-7.7); Neutrophils % 52.6 %; Nucleated Red Blood Cells % 0 %; Platelet Count 112 10^3/cmm (130-400); Red Blood Count 3.52 10^6/uL (4.1-5.3); Red Cell Distribution Width 14.1 % (12.1-15.1); White Blood Count 6.9 10^3/uL (4.0-10.0)
[2022-08-16 02:48] VITALS: RESP 16
[2022-08-16] MEDS: oxyCODONE-APAP 5-325 mg Tablet 1 TAB PO ×2 (02:48→07:26)
[2022-08-16 06:00] VITALS: BP 103/72; PULSE 82; O2SAT 94
[2022-08-16 06:23] LABS: Basophils % 0.3 %; Eosinophils # 0.1 10^3/uL (0.0-0.8); Eosinophils % 1.4 %; Hematocrit 32.7 % (37.0-47.0); Hemoglobin 10.5 g/dL (11.5-15.3); Lymphocytes # 2.8 10^3/uL (0.8-4.8); Lymphocytes % 44.6 %; Mean Corpuscular HGB Conc 32.1 g/dL (30.0-36.0); Mean Corpuscular Hemoglobin 29.1 pg (28.0-34.0); Mean Corpuscular Volume 90.6 fl (81-99); Mean Platelet Volume 11.9 fL (7.4-10.4); Monocytes # 0.3 10^3/uL (0.2-0.9); Neutrophils # 3.03 10^3/uL (1.8-7.7); Neutrophils % 48.5 %; Nucleated Red Blood Cells % 0 %; Platelet Count 118 10^3/cmm (130-400); Red Blood Count 3.61 10^6/uL (4.1-5.3); Red Cell Distribution Width 14.1 % (12.1-15.1); White Blood Count 6.3 10^3/uL (4.0-10.0)
[2022-08-16 07:15] VITALS: BP 112/78; PULSE 89; RESP 16; TEMP 37; O2SAT 97
[2022-08-16 07:26] VITALS: RESP 18
[2022-08-16] MEDS: docusate sodium 100 mg Capsule PO (07:26)
--- NOTE | 2022-08-16 09:56 | P.DS_ITS ---
Discharge Providers Date of Admission: 08/15/22 13:09 Date of Discharge: August 16, 2022 Attending Provider at Admission: Halie Moore MD Attending Provider at Discharge: Halie Moore MD Diagnoses at Discharge Discharge Diagnosis (1) Postoperative vaginal bleeding: Status: Acute Reason for Visit Reason for Visit: Uterovaginal prolapse, unspecified Hospital Course Hospital Course The patient was admitted for [facility]. She had a previous salpingectomy. On exam, the cervix was at the introitus. The surgery was converted to TVH. She did well postoperatively until the evening of day#0. She was having pain and given dilaudid. She then hada sudden drop in her blood pressure and felt poorly. A CBC was done which showed a drop in her hemoglobin. An ultrasound and CT scan was performed which showed a hematoma in the pelvis. There was no active bleeding noted. She received 2 units of blood on postop day #1. She was symptommatic and felt light headed upon standing. She felt much better after the blood transfusion. Her hemoglobin was stable. She never did have any vaginal bleeding. She had an ultrasound which showed that the hematoma was stable as well. She was ready for discharge. Physical Exam Narrative: The patient is feeling much better this morning and is ready to go home. Const: COMMON NORMALS: no acute distress, average body habitus, patient oriented x3, no limitations, healthy appearing, alert and well nourished GENERAL APPEARANCE: cooperative, comfortable, well kempt and well developed ORIENTATION/CONSCIOUSNESS: Yes awake, Yes oriented to person, Yes oriented to place and Yes oriented to time Resp: COMMON NORMALS: normal respiratory effort EFFORT & INSPECTION: Yes able to speak in complete sentences GI: COMMON NORMALS: Soft to palpation and non-tender PALPATION: Yes Soft to palpation Extremity: COMMON NORMALS: no calf tenderness Neuro: COMMON NORMALS: patient oriented x3 SENSORIUM/ORIENTATION: Yes alert, Yes oriented to person, Yes oriented to place and Yes oriented to time Psych: APPEARANCE: Yes well kempt Urinary Catheter Management: Perkins Latex: Cath Placed During This Visit: yes, but has since been removed by the nurse Reason for Continuing Indwelling Catheter: Perioperative Use in Selected Surgeries Urinary Catheter Date of Insertion: 08/14/22 Urinary Catheter Time of Insertion: 07:35 Date Urinary Catheter Removed: 08/15/22 Time Urinary Catheter Discontinued: 17:45 Discharge Data Studies Completed and Pending Completed Studies During Hospitalization Category Date Time Status CT abdomen pelvis w con* [id number] Stat Cat Scan 08/14/22 18:03 Completed US pelvic limited [id number] Stat Ultrasound 08/14/22 17:43 Completed US pelvic limited [id number] Urgent Ultrasound 08/15/22 17:50 Completed Pending at discharge Category Date Time Status Urine Culture Routine Lab 08/14/22 07:36 Results Pathology: Surgical [PTH] Routine Pth 08/14/22 08:21 Received Radiology Impressions Abdomen/Pelvis CT 08/14/22 18:03 IMPRESSION: 1. Complex collection of material in the deep pelvis measuring approximately 12 by 5 by 9 cm as seen on recent pelvic ultrasound likely reflects a large hematoma, negative for active contrast extravasation seen to suggest bleeding. 2. Bibasilar atelectasis. 3. Moderate to large amount of ascites throughout the abdomen and pelvis along with a trace amount of free air in the abdomen and pelvis, likely related to recent history. 4. Perkins catheter in the urinary bladder. 5. Left hepatic lobe 4.7 cm somewhat rounded focal exophytic masslike area, best seen series 4, image 25 and series 6, image 12, while findings may reflect prominent lobulation of the left hepatic lobe, an underlying mass is a concern, consider further evaluation with nonemergent hepatic ultrasound. 6. Constipation. Pelvis Ultrasound 08/15/22 17:50 IMPRESSION: Heterogeneous, hypoechoic structure measuring 12.3 x 4.9 x 8.2 cm within the pelvis, given history this likely reflects an evolving hematoma. Laboratory Results WBC 6.3 10^3/uL (4.0-10.0) 08/16/22 06:13 Corrected WBC Cancelled 08/15/22 17:15 RBC 3.61 10^6/uL (4.1-5.3) L 08/16/22 06:13 Hgb 10.5 g/dL (11.5-15.3) L 08/16/22 06:13 Hct 32.7 % (37.0-47.0) L 08/16/22 06:13 MCV 90.6 fl (81-99) 08/16/22 06:13 MCH 29.1 pg (28.0-34.0) 08/16/22 06:13 MCHC 32.1 g/dL (30.0-36.0) 08/16/22 06:13 RDW 14.1 % (12.1-15.1) 08/16/22 06:13 Plt Count 118 10^3/cmm (130-400) L 08/16/22 06:13 MPV 11.9 fL (7.4-10.4) H 08/16/22 06:13 Gran % Cancelled 08/15/22 17:15 Neut % (Auto) 48.5 % 08/16/22 06:13 Lymph % (Auto) 44.6 % 08/16/22 06:13 [place] % (Auto) 5.0 % 08/16/22 06:13 Eos % (Auto) 1.4 % 08/16/22 06:13 Baso % (Auto) 0.3 % 08/16/22 06:13 Neut # (Auto) 3.03 10^3/uL (1.8-7.7) 08/16/22 06:13 Lymph # (Auto) 2.8 10^3/uL (0.8-4.8) 08/16/22 06:13 [place] # (Auto) 0.3 10^3/uL (0.2-0.9) 08/16/22 06:13 Eos # (Auto) 0.1 10^3/uL (0.0-0.8) 08/16/22 06:13 Baso # (Auto) 0.0 10^3/uL (0.0-0.1) 08/16/22 06:13 Absolute Gran (auto) Cancelled 08/15/22 17:15 Nucleated RBC % (auto) 0 % 08/16/22 06:13 Nucleated RBCs # 0.0 /100WBC 08/16/22 06:13 Sodium 136 mmol/L (136-145) 08/14/22 06:15 Potassium 3.6 mmol/L (3.5-5.1) 08/14/22 06:15 Chloride 104 mmol/L (98-107) 08/14/22 06:15 Carbon Dioxide 22 mmol/L (22-29) 08/14/22 06:15 Anion Gap 13.6 (5-19) 08/14/22 06:15 BUN 15 mg/dL (6-20) 08/14/22 06:15 Creatinine 0.5 mg/dL (0.5-0.9) 08/14/22 06:15 GFR Calculation 142.1 mL/min (90-130) H 08/14/22 06:15 Glucose 85 mg/dL (65-115) 08/14/22 06:15 Calculated Osmolality 282 mOsm/kg (285-295) L 08/14/22 06:15 Lactate 1.0 mmol/L (0.5-2.2) 08/15/22 00:00 Calcium 9.0 mg/dL (8.5-10.5) 08/14/22 06:15 Blood Type O Positive 08/14/22 06:15 Rho(D) Type Positive 08/14/22 06:15 Antibody Screen Negative 08/14/22 06:15 Crossmatch See Detail 08/14/22 06:15 Vitals Last Vital Signs Temp 98.6 F 08/16/22 07:15 Pulse 89 08/16/22 07:15 Resp 18 08/16/22 07:26 BP 112/78 08/16/22 07:15 Pulse Ox 97 08/16/22 07:15 O2 Del Method 08/16/22 07:15 Discharge Plan Discharge Patient Disposition: Home Condition: Stable Prescriptions: New oxycodone-acetaminophen 5-325 mg Tablet 1 tab PO Q4H PRN (Reason: Moderate Pain) Qty: 30 0RF docusate sodium 100 mg Capsule 100 mg PO BID Qty: 60 0RF ibuprofen 800 mg tablet 800 mg PO Q8H Qty: 30 0RF Continued ibuprofen 800 mg tablet 400 mg PO Q8H PRN (Reason: pain) acetaminophen [Tylenol] 325 mg Tablet 650 mg PO QID PRN (Reason: Pain) Discharge Orders: Discharge Order (Routine); Ordered 08/16/22 Ordered By: Halie Moore Patient Instructions: Hydrocodone/Acetaminophen (By mouth), Laxative, Stool Softeners (By mouth), Postoperative Bleeding (GEN), Vaginal Hysterectomy (DC), OB Discharge Report, Opioid Safety Discharge Attestations Time Spent in Discharge Care*: less than 30 min Quality Metrics Clinical Quality Measures [ No reported AMI, CVA or VTE this stay] Coding Level of Care Code Acute Chg FW DC note Diagnoses Postoperative vaginal bleeding
[2022-08-16] MEDS: ibuprofen 800 mg tablet PO (10:04)
[2022-08-16 11:45] VITALS: BP 113/73; PULSE 73; RESP 18; TEMP 37.1
[2022-08-16 12:00] VITALS: BP 113/73; PULSE 73; RESP 18; TEMP 37.1
--- NOTE | 2022-08-16 13:09 | PC.NURSE ---
1200 PATIENT DISCHARGED HOME
== END 2022-08-16 12:00 | disposition home or self-care (01) | DRG 742 ==
LOC: OBGYN 08:27
PROVIDERS: Admitting Provider Obstetrics & Gynecology; Visit Provider Obstetrics & Gynecology
PROC: 0UT97ZZ Resection of Uterus, Via Natural or Artificial Opening (ICD-10-PCS; CPT 58260; principal; 2022-08-14 07:00)
PROC: 0TJB8ZZ Inspection of Bladder, Via Natural or Artificial Opening Endoscopic (ICD-10-PCS; CPT 52000; 2022-08-14 07:00)
DX: N81.4 Uterovaginal prolapse, unspecified (principal); N99.840 Postprocedural hematoma of a genitourinary system organ or structure following a genitourinary system procedure; N80.03 Adenomyosis of the uterus; R16.0 Hepatomegaly, not elsewhere classified; I95.9 Hypotension, unspecified
CPT/HCPCS: 58260; 36415; 36430; 74177; 76857; 80048; 83605; 85025; 85027; 86850; 86900; 86920; 87086; 88305; G0378; J0131; J0690; J1100; J1170; J1200; J1885; J2175; J2250; J2270; J2370; J2405; J2704; J2710; J3010; J3490; J7030; J7040; J7121; P9016; Q0163; Q9967

== ENCOUNTER 2022-09-05 07:49 | Outpatient (CLI) | payer BC, MEDICAID, SELFPAY ==
--- NOTE | 2022-09-05 08:00 | US_ITS ---
WS: [id number] RIGHT UPPER QUADRANT ULTRASOUND HISTORY: R16.0 - Hepatomegaly, not elsewhere classified COMPARISON: CT 08/14/2022 Liver: 11.9 cm in length. Normal size liver. Rounded hypervascular mass nearly isoechoic to the liver is identified anteriorly. This is within the LEFT lobe of the liver and just anterior medial to the gallbladder. This mass was recently described by CT. By ultrasound this mass is hypervascular measuri ng 4.7 x 4.0 x 4.8 cm. There is a central hypoechoic scar which is branching. No calcification or fat identified. No bile duct dilatation. The portal vein is normal. Portal Vein: Normal hepatopetal flow with monophasic waveform. Gallbladder: Normally distended gallbladder with no stones or wall thickening. CBD: 0.5 cm Pancreas: Normal size and echogenicity. Right kidney: 9.9 cm in length. Normal size and echogenicity. No hydronephrosis or mass. Aorta and IVC: Unremarkable abdominal aorta and IVC. No ascites. US/US liver [id number] IMPRESSION: 1. Isoechoic, hypervascular mass LEFT lobe of liver measures 4.7 x 4.0 x 4.8 c m. Mass contains a central scar. This is most likely benign focal nodular hyper plasia based upon its imaging findings and age of the patient. Adenoma is withi n the differential, correlate with history of oral contraceptives or anabolic s teroid use. No hemorrhage at this time. Hepatic mass will need to be further ev aluated by MRI or surgical excision. 2. Hepatic mass evaluation by MRI with and without contrast is recommended. MR I should be performed during arterial, portal venous and delayed phases to eval uate for FNH.
== END 2022-09-05 07:50 | disposition home or self-care (01) ==
LOC: RAD 07:51
PROVIDERS: Visit Provider Obstetrics & Gynecology
DX: R16.0 Hepatomegaly, not elsewhere classified (principal)
CPT/HCPCS: 76705

== ENCOUNTER → 2022-09-24 09:28 | Outpatient (BNVA) | payer BC, MEDICAID, SELFPAY | PROVIDERS: Visit Provider Obstetrics & Gynecology | DX: Z98.890 Other specified postprocedural states (principal) | CPT/HCPCS: 85025 ==

== ENCOUNTER 2022-11-14 09:31 | Outpatient (CLI) | payer BC, MEDICAID, SELFPAY ==
--- NOTE | 2022-11-14 09:30 | MR_ITS ---
WS: [id number] MRI ABDOMEN with and without CONTRAST. COMPARISON: Prior CT abdomen 08/14/2022. Liver ultrasound 09/05/2022 Multiplanar, multisequence imaging is performed with contrast. MultiHance 13 mL IV. History: Hepatic mass seen on prior imaging studies from 08/14/2022 and 09/05/2022 Solid mass centered in the medial segment LEFT lobe liver abutting the falciform ligament and also ab utting the gallbladder. This mass does have a capsule and is nearly isoechoic on nearly all sequences with mild enhancement. There does appear to be a central scar. Mass measures 4.3 x 4.1 cm. No increa se in size or associated hemorrhage since August 2022. There is moderate enhancement. No ascites or adenopathy. No additional lesions within the liver. Spleen and liver are normal size. No bile duct dilatation. No adrenal mass. Normal portal vein. No ev idence for acute cholecystitis. MR/MR abdomen wo/w con* [id number] IMPRESSION: 1. Stable mass medial segment LEFT lobe of liver now measuring 4.3 x 4.1 cm. N o change since 08/14/2022. 2. Mass contains a capsule which is often seen with hepatic adenomas. There is a central scar which can be seen with FNH. These are both benign lesions. Due to the stability over several months not thought to be malignant. 3. No ascites or adenopathy. 4. Recommendation: Serial follow-up examinations of this liver lesion will be necessary to document long-term stability. Suggest follow-up MRI liver with and without contrast in 3 months.
[2022-11-14] MEDS: gadobenate dimeglumine 20 mL vial IV (10:28)
== END 2022-11-14 09:32 | disposition home or self-care (01) ==
PROVIDERS: Visit Provider Obstetrics & Gynecology
DX: R16.0 Hepatomegaly, not elsewhere classified (principal)
CPT/HCPCS: 74183; A9577